=== PATIENT | male | born 1985 ===

== ENCOUNTER 2018-03-22 21:05 | Emergency (ER) | payer OTHER ==
[2018-03-22 22:06] VITALS: BP 125/77; PULSE 68; RESP 18; TEMP 98.6; O2SAT 98
[2018-03-22] MEDS ORDERED: Silver Sulfadiazine 1% CREAM (50 gm) ONE (22:55)
[2018-03-22] MEDS ORDERED: Silver Sulfadiazine 1% Cream (20 gm) TOP STA (22:56)
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
== END 2018-03-22 23:37 | disposition home or self-care (01) ==
LOC: H.ER 21:05
DX: T22.20XA Burn of second degree of shoulder and upper limb, except wrist and hand, unspecified site, initial encounter (principal); T79.9XXA Unspecified early complication of trauma, initial encounter; X17.XXXA Contact with hot engines, machinery and tools, initial encounter; Y93.9 Activity, unspecified; Y99.0 Civilian activity done for income or pay